=== PATIENT | female | born 1990 | race Caucasian/White ===

== ENCOUNTER 2016-11-29 04:57 | Day surgery (SDC) | payer BC ==
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
[~2016-11-29 04:57] MED LIST: BIOTIN PO; EXCEDRIN TENSI1 EACH PO; IBUPROFEN PO; NEUR300 PO; PRILO PO; T PO; VALIUM PO; ZOL50 PO
== END 2016-11-29 14:47 | disposition home or self-care (01) ==
LOC: SDC 04:57
PROVIDERS: Orthopaedic Surgery
PROC: 0RR30JZ Replacement of Cervical Vertebral Disc with Synthetic Substitute, Open Approach (ICD-10-PCS; principal; 2016-11-29 06:45)
DX: M50.122 Cervical disc disorder at C5-C6 level with radiculopathy (principal); M47.22 Other spondylosis with radiculopathy, cervical region; F17.290 Nicotine dependence, other tobacco product, uncomplicated; J45.909 Unspecified asthma, uncomplicated; K21.9 Gastro-esophageal reflux disease without esophagitis; F41.9 Anxiety disorder, unspecified; Z90.89 Acquired absence of other organs; Z79.899 Other long term (current) drug therapy; Z98.890 Other specified postprocedural states
CPT/HCPCS: 84703; 87641; 88304; 88311; A9270-GY; J0690; J1170; J2250; J2405; J2710; J3010